=== PATIENT | female | born 1935 | race Hispanic/Latino ===

== ENCOUNTER 2021-02-18 10:14 | Emergency (ER) | payer MEDICARE ==
[2021-02-18] MEDS ORDERED: ASPIRIN 325 MG TAB PO ONE (10:45)
--- NOTE | 2021-02-18 11:00 | Event Note ---
ED Screening Note Date of service: 02/18/21 Time: 11:00 ED Screening Note: Patient here for sudden onset of dizziness occurring once a day Presents via EMS This initial assessment/diagnostic orders/clinical plan/treatment(s) is/are subject to change based on patients health status, clinical progression and re- assessment by fellow clinical providers in the ED. Further treatment and workup at subsequent clinical providers discretion. Patient/guardian urged not to elope from the ED as their condition may be serious if not clinically assessed and managed. Initial orders include: Labs EKG Chest x-ray notified chrage nurse of lack of vitals in chart
--- NOTE | 2021-02-18 13:12 | XRay Report ---
CHEST 2 VIEWS INDICATION: nausea, diaphoresis, SOB. COMPARISON: None FINDINGS: Support devices: None. Heart: Within normal limits. Lungs/pleura: No acute air space or interstitial disease. No pneumothorax. Additional findings: None. IMPRESSION: No acute findings. Signer Name: Jalen Whiting Jr, MD Signed: 02/18/2021 1:08 PM Workstation Name: [id number]
[2021-02-18 18:39] VITALS: BP 173/73
--- NOTE | 2021-02-19 10:40 | Electrocardiograph Report ---
[facility] Test Date: 2021-02-18 Test Time: 10:41:28 Pat Name: ARISTEO HARRY Department: Room: Gender: F Chief Risk Officer: : 1935 Requested By: ANABEL LLANOS Order Number: [id number] Reading MD: Fermin Emery Measurements Intervals [place]illion Rate: 75 P: 44 DC: 211 QRS: 27 QRSD: 92 T: 84 QT: 342 QTc: 383 Interpretive Statements Sinus rhythm Probable left atrial enlargement Probable left ventricular hypertrophy No previous ECG available for comparison Electronically Signed On 02-19-2021 10:39:49 EDT by Fermin Emery
== END 2021-02-18 14:00 ==
LOC: ED 10:14
DX: R55 Syncope and collapse (principal); Z53.21 Procedure and treatment not carried out due to patient leaving prior to being seen by health care provider
CPT/HCPCS: 71046; 93005